=== PATIENT | male | born 1995 | race Caucasian/White ===

== ENCOUNTER 2023-07-07 01:12 | Emergency (ER) | payer SELFPAY ==
[~2023-07-07] VITALS: Ht 188 cm; Wt 85.0 kg
[2023-07-07 01:19] VITALS: BP 110/54; PULSE 86; TEMP 98.3
[2023-07-07] MEDS ORDERED: MOTRIN 800800 MG/TAB PO (01:44)
[2023-07-07] MEDS ORDERED: FLEXERIL 1010 MG/TAB PO (01:44)
[2023-07-07] MEDS ORDERED: PERCOCET 325 MG1 TA2 PO (01:44)
[2023-07-07] MEDS ORDERED: Ibuprofen 400 MG TAB PO ONE (01:45)
[2023-07-07] MEDS ORDERED: oxyCODONE/Acetaminophen 5-325 MG TAB PO ONE (01:45)
== END 2023-07-07 02:20 | disposition home or self-care (01) ==
LOC: COL.ER 01:12 → EDBD 01:13 → COL.ER 01:13
DX: M54.12 Radiculopathy, cervical region (principal)